=== PATIENT | female | born 1985 ===

== ENCOUNTER 2017-07-20 02:46 | Inpatient (IN) | payer MEDICAID, OTHER ==
[2017-07-20 03:12] VITALS: BMI 28.8
[2017-07-20 05:04] LABS: BASO % 0.4 % (0.0-2.0); EOS # 0.1 K/uL (0.0-0.7); EOS % 0.7 % (0.0-4.0); LYMPH # 1.6 K/uL (1.0-4.3); LYMPH % 14.9 % (20.0-40.0); MEAN CELL VOLUME 83.9 fl (81.0-99.0); MEAN CORPUSCULAR HEMOGLOBIN 27.6 pg (27.0-31.0); MEAN CORPUSCULAR HGB CONC 32.9 g/dL (33.0-37.0); MEAN PLATELET VOLUME 10.9 fl (7.2-11.7); MONO % 9.3 % (0.0-10.0); NEUT # 8.2 K/uL (1.8-7.0); NEUT % 74.7 % (50.0-75.0); NRBC % 0.2 % (0.0-0.0); WHITE BLOOD COUNT 10.9 K/uL (4.8-10.8)
[2017-07-20 05:12] VITALS: O2SAT 100
[2017-07-20] MEDS ORDERED: Oxytocin 30 units/LR 500ML 30 U/500 ML BAG IV ONE (07:32)
--- NOTE | 2017-07-20 07:32 | OBADHP ---
Datetime: 07/20/2017 04:30 Admit Comment, IP Provider: CC: mucus discharge/ROM HPI: 32 yo at 38.1 wks GA with EDC by LMP 10/26/2016; confirm via Ultrasound in 04/08/2017; Last US: 07/13/2017; last visit: 07/16/2017; GBS neg +FM, ROM, CTX; -: VB At 01:00 pt shared of mucus discharge per vagina, yellow colored PNC: Dr. Albarado: 2 vessel cord; echo (per patient was wnl) in April. 1 hr GTT ON 04/22/2017 17 4; 3 HR 04/30/2017 68/144/131/116 POBHX: n/a PGYNEHX: neg STI; pap 12/2016 neg PMHX: none PSURGHX: none SOC: denies: smoking/alcohol/drugs MEDS: none ALLERGIES: NKDA GBS:neg ; ABO-Rh:B+ ; Ab: neg; HIV: neg ; RPR:neg ; GC/C: neg ; Rubella: IM ; HbsAg: neg ; PPD: qu ant gold neg; TDap: ?? VITALS: 123/68 89 PE: General: pleasant, in no acute distress HEENT: normocephalic, PERRLA; AAOx3 Heart: no murmurs, regular rate and rhythm, S1, S2 normal. Lungs: clear to auscultation bilaterally, no wheezing Abdomen: nontender, gravid CVA: negative Lower extremities: negative for pitting edema SSE/PELVIC: White mucus per vagina, cervix at 1 cm dilated, 60% effaced, -3 station; Nitrazine pos itive; Ferning positive Bedside US: vertex position monitor: Moderate variability; Accel: 15x15; no decels; FHR: 130 ASSESSEMENT: 32 yo F IUP at 38.1 wks GA with history of 2 vessel cord and cleared echo in 04/2017 ROM PLAN: Admit to Labor and Delivery, CBC/Type and Screen/RPR, Intravenous access, Monitoring, Monito r Labor progress, Discussion about her condition including labor, delivery, pain management, and post care. PENG PGY1 OB Hospitalist Addendum: Pt seen and examined by me. Agree w/ a above. 32 yo G1 at 38+1 wks w/ c/ o mucus fluid since 1 am, also c/o pelvic pain w/ movment. Pt denies ctxns, VB and reports FM. Spec: yellow mucus and water, positive nitrazine and positive fern. VE: /-3 at 0415. Pt admitt ed w/ PROM. (ES) Pelvic Type - PN: Adequate Extremities - PN: Normal Abdomen - PN: Normal Back - PN: Normal Breast - PN: Not Done Lungs - PN: Normal Heart - PN: Normal Thyroid - PN: Not Done Neurologic - PN: Normal HEENT - PN: Normal General - PN: Normal FHR - Baseline A Provider: 130 Amniotic Fluid Color, Provider: Clear Membranes, Provider: Ruptured Nitrazine Provider: Positive Ferning Provider: Positive Vital Signs Provider: Reviewed; Within Normal Limits IP Chief Complaint: Suspected ruptured membranes NICHD Variability Prov Fetus A: Moderate 6-25bpm NICHD Accel Fetus A IP Provider: 15X15 FHR Category Provider Fetus A: Category I NICHD Decel Fetus A IP Provider: None Dilatation, Provider: 1 Effacement, Provider: 60 Station, Provider: -3 Genitourinary Exam: Normal DTRs - PN: Not Done IP Adm Impression: Term, intrauterine ; No Active Labor; Ruptured Membranes IP Admit Plan: Admit to unit Datetime: 07/20/2017 04:15 Pool Provider: Positive
[2017-07-20] MEDS: Lactated Ringer's 1,000 ML IV SCH ×2 (08:00→17:20)
[2017-07-20] MEDS ORDERED: Fentanyl/Bupivacaine HCl 250 ML EPI ONE (17:52)
[2017-07-20] MEDS ORDERED: Lidocaine 1% Inj (20ml) ONE (20:21)
[2017-07-20 21:57] LABS: CORD BLOOD GAS HCO3 22.3 mmol/L (2.5-3.5); CORD BLOOD GAS PCO2 40 mm/Hg (49-57); CORD BLOOD GAS PH 7.37 (7.28-7.78)
--- NOTE | 2017-07-20 22:00 | OBDS ---
DELIVERY PERSONNEL Delivery Doctor: Amanuel Albarado MD Air Brake Rigger: Suzanne Peralta RN Anesthesiologist: Sandeep De La Cruz MD MATERNAL INFORMATION Delivery Anesthesia: Epidural Medications in Delivery: Oxytocin 30 units in 500 mL Placenta Cultured: No Maternal Complications: None Provider Comments: pt was fully dilated and upshing. atrumatic, spontaneous delivey rof head in abram potion, no nuchal cord noted. atarumatic, spontenaous delivye rof anterior followed by poseriro shoul zuleyma followed by dleivy rof body. both oral and nasl passages of kat[place] baby were bulb suctioned, ubmicla l cord was clamped and cut. victor hugo handed to mother on abdomen with rn assistnace. cord blood and cord gases collected and sent x 2. Placenta delivered manually. funuds firm. second degree perineal lacer ation noted and repaired iw 2-o chorminc. good hemostais, no complicatins. live male apgars 9,9 weight of 6lbs 7 ounces ebl 400 ml no complicaiotns LABOR SUMMARY EDC: 08/02/2017 00:00 No. Babies in Womb: 1 Attempted: No Labor Anesthesia: Epidural LABOR INFORMATION Reason for Induction: Not Applicable Onset of Labor: 07/20/2017 17:50 Complete Dilatation: 07/20/2017 20:10 Oxytocin: Augmentation Group B Beta Strep: Negative Steroids Given: None Reason Steroids Not Administered: Not Applicable MEMBRANES Membranes Rupture Method: Spontaneous Rupture of Membranes: 07/20/2017 01:40 Length of Rupture (hrs): 19.50 Amniotic Fluid Color: Clear Amniotic Fluid Amount: Small Amniotic Fluid Odor: Normal STAGES OF LABOR Stage 1 hrs: 2 Stage 1 min: 20 Stage 2 hrs: 1 Stage 2 min: 0 Stage 3 hrs: 0 Stage 3 min: 16 Total Time in Labor hrs: 3 Total Time in Labor min: 36 VAGINAL DELIVERY Episiotomy: None Laceration Extension: Second Degree Laceration Type: Perineal Laceration Repair: Yes Laceration Repair Note: second degree [id number] repaired iwth 2-0 chormic Initial Vag Sponge Count: 10 Final Vag Sponge Count: 10 Initial Vag Sharps Count: 5 Final Vag Sharps Count: 5 Sponge Count Correct: Yes Sharps Count Correct: Yes BABY A INFORMATION Delivery Date/Time: 07/20/2017 21:10 Method of Delivery: Vaginal Born in Route : No : N/A Forceps: N/A Vacuum Extraction: N/A Shoulder Dystocia : No SHOULDER DYSTOCIA BABY A Delivery Date/Time: 07/20/2017 21:10 PRESENTATION/POSITION BABY A Presentation: Cephalic Cephalic Presentation: Vertex Vertex Position: Right Occipital Posterior PLACENTA INFORMATION BABY A Placenta Delivery Time : 07/20/2017 21:26 Placenta Method of Delivery: Spontaneous Placenta Status: Delivered SCORES BABY A Heart Rate 1 min: >100 bpm Resp Effort 1 min: Good Cry Reflex Irritability 1 min: Cough or Sneeze or Pulls Away Muscle Tone 1 min: Active Motion Color 1 min: Body [place], Extremities Blue Resuscitation Effort 1 min: Tactile Stimulation SCORE 1 MIN: 9 Heart Rate 5 min: >100 bpm Resp Effort 5 min: Good Cry Reflex Irritability 5 min: Cough or Sneeze or Pulls Away Muscle Tone 5 min: Active Motion Color 5 min: Body [place], Extremities Blue Resuscitation Effort 5 min: Tactile Stimulation SCORE 5 MIN: 9 INFORMATION BABY A Gestational Age at Delivery: 38.1 Gestational Status: Term Infant Outcome : Liveborn Infant Condition : Stable Infant Sex: Male IDENTIFICATION/MEDS BABY A ID Band Number: [id number] ID Band Location: Left Leg; Left Arm WEIGHT/LENGTH BABY A Infant Birthweight (gms): 2910 Infant Weight (lb): 6 Infant Weight (oz): 7 CORD INFORMATION BABY A No. Cord Vessels: 2 Nuchal Cord : N/A Cord Blood Taken: Yes Infant Suction: Mouth
[2017-07-20] MEDS ORDERED: Oxycodone/Acetaminophen 5/325 mg Tab PO PRN ×4 (22:07→22:46)
[2017-07-20] MEDS ORDERED: Benzocaine/Menthol SPRAY TOP PRN (22:07)
[2017-07-21] MEDS: Benzocaine/Menthol SPRAY TOP PRN ×2 (01:33→07:55)
[2017-07-21 07:05] LABS: BASO % 0.2 % (0.0-2.0); EOS % 0.3 % (0.0-4.0); HEMATOCRIT 37.4 % (34.0-47.0); LYMPH # 1.4 K/uL (1.0-4.3); LYMPH % 9.5 % (20.0-40.0); MEAN CELL VOLUME 84.3 fl (81.0-99.0); MEAN CORPUSCULAR HEMOGLOBIN 27.5 pg (27.0-31.0); MEAN CORPUSCULAR HGB CONC 32.6 g/dL (33.0-37.0); MEAN PLATELET VOLUME 11.1 fl (7.2-11.7); MONO # 1.2 K/uL (0.0-0.8); MONO % 8.3 % (0.0-10.0); NEUT # 11.9 K/uL (1.8-7.0); NEUT % 81.7 % (50.0-75.0); PLATELET COUNT 157 K/uL (130-400); RED CELL DISTRIBUTION WIDTH 17.2 % (11.5-14.5); WHITE BLOOD COUNT 14.6 K/uL (4.8-10.8)
[2017-07-21 08:44] LABS: BASOPHIL 1 % (0-2); NEUTROPHIL 80 % (42-75); REACTIVE LYMPHOCYTES 2 % (0-0); TOTAL CELLS COUNTED 100
[2017-07-21 08:45] LABS: LARGE PLATELETS PRESENT
--- NOTE | 2017-07-21 14:08 | OBDCSUM ---
Datetime: 07/21/2017 14:06 Discharged to, Provider: Home Follow up at, Provider: Dr Albarado Disch Instr Activity: Normal activity Disch Instr Diet: Regular Discharge Instructions, Provider: Routine instructions given Discharge Diagnosis, Provider: Term Delivered Discharge Time: 07/22/2017 09:00 Follow up in weeks, Provider: 6 weeks Disch Referrals: None Contraception discussed, Prov: Yes Disch Activity Restrictions: No sexual activity; Nothing in vagina - [place], tampons, douche Discharge Comment, Provider: f/u 6 week d/c in am precaiotn givne no sex, no douchign no tampons x 6 week if fever, heavy lbeeidng more than 2 pads / hour, increasedd pain go to er and call doctor Contraception after Delivery: Not Planning to Use
--- NOTE | 2017-07-21 14:08 | OBPPN ---
Datetime: 07/21/2017 14:04 PP Pain Prov: Within normal limits PP Nausea Prov: Denies PP Flatus Prov: Yes PP BM Prov: No PP Breasts Prov: Normal PP Heart Prov: Normal PP Lungs Prov: Normal PP Abdomen/Uterus Prov: Normal PP Lochia Prov: Normal PP Vulva/Perineum Prov: Normal PP CVA Tenderness Prov: Normal PP Extremities Prov: Normal PP C/S Incision Prov: Not Applicable PP Progress Prov: Normal PP Comments Phys Exam Prov: GEN NAD, AAO x 3 BREST: Non tene,r no engorged b/l RESP: CTAB?l CVS: RRR, +S1/S2 ABD: soft, NT/ND, no guarding, no reboudn tendneres, nor igdity FUNDUS: firm, belwo level of umbilcs, moderate lochia, non foul semllinge laceration site heailng well EXT: non calf tenderness b/l PP Impression Prov: Normal progression PP Plan Prov: Continue present management PP Progress Note Prov: pt seen adn examiend reports cramping pain controlled with motrin. tp halie a ny fever, chills , nasue, vomitng, toelratign reuglar diet, ambuating, viodng, breast feeding. VSS (BP 5am elevated, repeat wnl) PE see above A/P s/p PPD #1 doign well -cont current mangament -anticpate d/ babak am -f/u office 6 weeks -precuation given IP PP Procedures: None Vital Signs Provider PP: Reviewed; Within Normal Limits
[2017-07-21] MEDS ORDERED: Influenza Vaccine 18yr & older 0.5 ML/45 MCG SYR IM ONE (15:00)
[2017-07-22 18:50] VITALS: BP 114/67; PULSE 85; RESP 18; TEMP 98.5
== END 2017-07-22 14:15 | disposition home or self-care (01) | DRG 373 ==
LOC: H.EROB2 02:46 → H.L&D 04:32 → H.OB/GYN 07-21 00:35
PROVIDERS: ADMIT Obstetrics & Gynecology; ATTEND Obstetrics & Gynecology
PROC: 0KQM0ZZ Repair Perineum Muscle, Open Approach (ICD-10-PCS; principal; 2017-07-20)
PROC: 10E0XZZ Delivery of Products of Conception, External Approach (ICD-10-PCS; 2017-07-20)
PROC: 4A1HXCZ Monitoring of Products of Conception, Cardiac Rate, External Approach (ICD-10-PCS; 2017-07-20)
DX: O70.1 Second degree perineal laceration during delivery (principal); Z37.0 Single live birth; Z3A.38 38 weeks gestation of pregnancy